=== PATIENT | male | born 1985 | race Two or more races ===

== ENCOUNTER 2020-07-12 19:50 | Emergency (ER) | payer BC, OTHER ==
[~2020-07-12] VITALS: Ht 175.3 cm; Wt 77.1 kg
--- NOTE | 2020-07-12 19:59 | NUR ---
PATIENT ARRIVED AT THE ER WITH C/O RIGHT LOWER QUEADRANT ABDOMINAL PAIN SINCE 2099 YESTERDAY. DENIES N/V AND DIARRHEA.
--- NOTE | 2020-07-12 19:59 | NUR ---
Dr. Smith on bedside for MSE.
--- NOTE | 2020-07-12 20:15 | NUR ---
Went for CT abd/pelvis
--- NOTE | 2020-07-12 20:23 | NUR ---
Back from CT.
[2020-07-12 20:38] LABS: BASOPHILS % (AUTO) 0.4 % (0.0-2.0); EOSINOPHILS # (AUTO) 0.2 K/uL (0.0-0.7); EOSINOPHILS % (AUTO) 1.9 % (0.0-7.0); HEMATOCRIT 44.3 % (36.7-47.1); HEMOGLOBIN 14.5 g/dL (12.5-16.3); LYMPHOCYTES # (AUTO) 2.1 K/uL (20.0-40.0); LYMPHOCYTES % (AUTO) 20.1 % (20.5-51.5); MEAN CORPUSCULAR HEMOGLOBIN 27.6 uug (23.8-33.4); MEAN CORPUSCULAR HGB CONC 33 g/dL (32.5-36.3); MONOCYTES # (AUTO) 1.3 K/uL (2.0-10.0); MONOCYTES % (AUTO) 12.1 % (0.0-11.0); NEUTROPHILS # (AUTO) 6.8 K/uL (1.8-8.9); NEUTROPHILS % (AUTO) 65.5 % (38.5-71.5); PLATELET COUNT (AUTO) 235 K/uL (152-348); RED BLOOD CELL COUNT(AUTO) 5.27 MIL/uL (4.06-5.63); WHITE BLOOD COUNT (AUTO) 10.4 K/uL (3.6-10.2)
[2020-07-12 20:43] LABS: *BILIRUBIN,URIN NEGATIVE (NEGATIVE); *CLARITY,URINE CLEAR (CLEAR); *COLOR,URINE YELLOW (YELLOW); *KETONES,URINE NEGATIVE (NEGATIVE); *UROBILINOGEN,URINE 0.2 E.U./dl (NORMAL); LEUKOCYTE ESTERASE ,URINE NEGATIVE (NEGATIVE); NITRITE, URINE NEGATIVE (NEGATIVE); UGLUCOSE NEGATIVE (NEGATIVE)
[2020-07-12 20:44] LABS: CREATININE 1.1 mg/dL (0.6-1.3); POTASSIUM 4.4 mmol/L (3.5-5.1)
[2020-07-12 20:50] LABS: BILIRUBIN,DIRECT 0.2 mg/dL (0.0-0.2); BILIRUBIN,TOTAL 0.8 mg/dL (0.2-1.0); TOTAL PROTEIN, SERUM 7.9 g/dL (6.4-8.2)
[2020-07-12 20:50] LABS: *BLOOD, URINE TRACE (NEGATIVE)
[2020-07-12 20:58] LABS: BACTERIA,URINE NONE SEEN /HPF (NONE SEEN); SQUAMOUS EPITHELIAL CELL,UR NONE SEEN /HPF (NONE SEEN); WBC,URINE 0-3 /HPF (0-3)
--- NOTE | 2020-07-12 21:00 | NUR ---
Dr. Smith on bedside for MSE.
--- NOTE | 2020-07-12 21:32 | NUR ---
Patient discharged to home in stable condition. Written and verbal after care instructions given. Patient verbalizes understanding of instructions. Stressed follow up or return to ER for worsening s/s. Patient ambulated fr the ER with steady gait. All belongings with patient.
[2020-07-12 21:33] VITALS: BP 133/77
== END 2020-07-12 21:31 | disposition home or self-care (01) ==
LOC: ER 19:58
DX: R10.31 Right lower quadrant pain (principal); R94.8 Abnormal results of function studies of other organs and systems
CPT/HCPCS: 36415; 83690; 85025; 85730; A4663